=== PATIENT | male | born 2000 | race Two or more races ===

== ENCOUNTER 2023-03-28 04:31 | Emergency (ER) | payer OTHER, SELFPAY ==
--- NOTE | 2023-03-28 04:30 | DI.CT_ITS ---
Exam(s) CT HEAD WO EXAM: CT HEAD WO CLINICAL HISTORY: Head strike. TECHNIQUE: Imaging Protocol: Axial computed tomography images with coronal and sagittal reformatted images were created and reviewed COMPARISON: No exams were available for comparison FINDINGS: Ventricles and Extra axial spaces: Normal in size and morphology for the patient's age. Hemorrhage: None. Cerebral parenchyma: Normal. Midline shift: None. Brainstem/Cerebellum: Normal. Calvarium: Normal. Visualized Paranasal sinuses/Mastoids: There is a small fluid level in the right maxillary sinus. Th ere is an acute fracture of the lateral wall of the right maxillary sinus which appears comminuted. Soft Tissues: Unremarkable. IMPRESSION: 1. No acute intracranial process. 2. There is an acute fracture of the lateral wall of the right maxillary sinus which appears comminut ed. There is a fluid level in the right maxillary sinus. 3. Findings were discussed with Judy Jimenez at 5:03 p.m. on 03/28/2023. RADIATION DOSE DELIVERED: 826.29mGy.cm Total DLP DATA REPOSITORY: All CT scans at this facility are submitted to the National Radiology Data Registry (NRDR) Dose Index Registry (DIR) with the [employer] (A[employer]). RADIATION OPTIMIZATION: All CT scans at this facility use at least one of these dose optimization te chniques: automated exposure control; mA and/or kV adjustment per patient size (includes targeted exa ms where dose is matched to clinical indication); or iterative reconstruction.
--- NOTE | 2023-03-28 04:30 | RT.EKG_ITS ---
APPROVED REPORT Exam: Resting ECG Reason for Exam: fall Patient Location: E HR:53 bpm ECG Measurements Heart Rate 53 AXIS MS 137 P 78 QRSd 100 QRS 80 QT 436 T 53 QTc 410 Conclusion Sinus bradycardia...rate< 60 Left atrial enlargement...P, P'>60mS, <-0.15mV V1 ST elev, probable normal early repol pattern...ST elevation, age<55 Sinus bradycardia at a rate of 53. Normal axis. Leads V1 and V2 appear to be misplaced based on our greater than R prime and P wave inversions. No acute ST segment abnormalities. We will repeat ECG.
--- NOTE | 2023-03-28 04:30 | DI.RAD_ITS ---
Exam(s) XR CHEST 2V PA LATERAL EXAM: XR CHEST 2V PA LATERAL CLINICAL HISTORY: History of falling TECHNIQUE: 2D digital imaging was performed of the chest. Two images were obtained. PA and lateral views were obtained. COMPARISON: No exams were available for comparison FINDINGS: MEDIASTINUM: Normal. HEART: Normal. PULMONARY VASCULATURE: Normal. LUNGS: Clear. PLEURAL SPACE: No pleural effusion or pneumothorax. BONE:Within normal limits for the patient's age. OTHER FINDINGS:Normal. IMPRESSION: No acute pulmonary findings. DATA REPOSITORY: RADIATION DOSE DELIVERED:
[2023-03-28 04:32] VITALS: BP 127/82; PULSE 59; RESP 17; TEMP 37.1; O2SAT 100
--- NOTE | 2023-03-28 04:45 | DI.RAD_ITS ---
Exam(s) XR SHOULDER RT COMPLETE 2+V EXAM: XR SHOULDER RT COMPLETE 2+V CLINICAL HISTORY: Right shoulder pain status post fall. TECHNIQUE: 2D digital imaging was performed of the right shoulder. Four images were obtained. AP, Grashey, Y views were obtained. COMPARISON: No exams were available for comparison FINDINGS: BONES: No acute fracture is present. No bony destructive lesion is seen. JOINTS: No dislocation present. SOFT TISSUE: Normal. IMPRESSION: Unremarkable radiographs of the right shoulder. DATA REPOSITORY: RADIATION DOSE DELIVERED:
--- NOTE | 2023-03-28 04:45 | RT.EKG_ITS ---
APPROVED REPORT Exam: Resting ECG Reason for Exam: Syncope Patient Location: E HR:54 bpm ECG Measurements Heart Rate 54 AXIS PA 145 P 80 QRSd 95 QRS 78 QT 427 T 55 QTc 406 Conclusion Sinus bradycardia...rate< 60 ST elev, probable normal early repol pattern...ST elevation, age<[address] segment elevations V2 and V3. No ST segment depressions. No T wave inversions. I ntervals within normal limits. No acute injury pattern. No prior for comparison.
[2023-03-28] MEDS: Normal Saline 500 ML IV (04:50)
--- NOTE | 2023-03-28 04:50 | W.ED.GENAD ---
Discharge Plan Disposition Patient Disposition: Home Discharge Details Clinical Impression: Syncope and collapse, Face lacerations [facility] Provider: [facility] Provider: Bi Gonzalez Home Meds and New Rx's Prescriptions: No Action No Known Home Meds Discharge Instructions Instructions: Facial Laceration (ED) Additional Instructions: You were seen in the emergency department for your episode of passing out. Your labs show that your kidneys are working well. Your EKG showed no sign of any dangerous rhythms. Your CAT scan showed no sign of any bleeding in your head. Your shoulder x-ray showed no sign of any broken or dislocated bones. Your stitches need to come out on Thursday, 04/03. Please return to the emergency department if you develop any foul-smelling drainage and any fevers or have any other concerns. For your pain please take medications as follows: 1. Take acetaminophen (Tylenol), 1,000 mg (two 500 mg tabs) every 6 hours 2. Take ibuprofen (Advil), 400 mg every 6 hours. Discharge Data Discharge Date/Time-TO BE ENTERED AT DEPARTURE: 03/28/23 07:45 HPI General Date/Time Provider Initiated Documentation: 03/28/23 04:36. HPI Narrative: HPI This is a previously healthy 22-year-old male arrived to the emergency department via paramedics following an episode in which he fell onto the pavement outside of his car. Patient has been reportedly sleeping in his car. He smoked some marijuana yesterday evening. This occurred at 11:30 PM. At midnight he went to sleep inside of his car. He was found outside of his car by his girlfriend. He cannot recall the events that led to his fall. He sustained a laceration to the right side of his face adjacent to his right eye. He has not been having any preceding nausea vomiting chest pain or shortness of breath. He takes no medications at baseline. He did not bite his tongue. He did not lose control of his bowels or bladder. No family history of sudden cardiac . Patient plays soccer and has no history of exertional syncope. Exam General: Well-appearing in no acute distress speaking in complete sentences. Head: Normocephalic, atraumatic. Eye: [Pupils equal, round reactive to light.] Extraocular eye movements intact. No conjunctival injection. No scleral icterus. Ear, nose, mouth, throat: Grossly normal inspection. Normal voice, handling secretions normally. Just on the right lateral side of the patient's right face adjacent to his eyebrow there is a small hemostatic approximately 1.5 cm laceration. Neck: Trachea midline. Cardiovascular: Well-perfused distal extremities. Regular rhythm Respiratory: Nonlabored respiration. Clear lungs bilaterally. Gastrointestinal: Nondistended abdomen. Musculoskeletal: No edema. Moving all 4 extremities spontaneously. On the superior aspect of the patient's right shoulder there is a superficial abrasion. Patient can touch his right hand to his contralateral left shoulder. No right clavicular tenderness. Otherwise no tenderness left upper extremity and bilateral lower extremities. Pelvis stable. Bilateral hands warm and well-perfused. Skin: Normal for age and race, grossly normal temperature and turgor. No acute rash. Neurologic: Alert and appropriate, no apparent acute deficits. GCS 15 Psychiatric: Mood and manner are appropriate. Grooming and personal hygiene are appropriate. MDM This is an overall very well-appearing normothermic and not tachycardic 22-year-old with syncope versus intoxication secondary to marijuana for which patient will undergo evaluation. Will obtain ECG. No black nor bloody stools without GI bleed. Patient received primary immunizations during childhood so no indication for tetanus immunization. No shortness of breath and PERC negative so no indication for D-dimer. Given head strike will obtain CT head given loss of consciousness. No tonic-clonic activity nor loss of bowel or bladder control to suggest benefit for EEG. Anticipate the patient's right facial laceration will require primary closure. Given right shoulder abrasion and tenderness will obtain shoulder x-ray. Low suspicion for dislocation. We will also obtain chest x-ray. No apparent pupillary defect and no proptosis so no indication for lateral canthotomy. [facility] Head CT Criteria Major Criteria GCS < 15 : [No] Open or depressed skull Fx: [No] Sign of Basilar Skull Fx: [No] > 2 Episodes Vomiting: [No] Anticoagulation: [No] Age > 65: [No] Minor Criteria Retrograde Amnesia >30min: Yes Dangerous Mechanism: [No] Per Nexus criteria, cervical CT not obtained. The patient had no c-spine midline tenderness, no evidence of intoxication, was AAOx3, had no focal neurological deficits, and no painful distracting injuries. In the setting of syncope I considered: High risk features: 1. Age of the patient (elderly a greatest risk) 2. Syncope during exertion 3. Family history of sudden [place] syncope rule: 1. History of CHF 2. Hematocrit < 30 3. EKG abnormalities 4. Present shortness of breath 5. Systolic blood pressure less than 90 Cardiac arrhythmia/EKG or abnormalities considered: 1. ACS: No ST changes 2. Tachy-jeff: No blocks 3. WPW: No delta wave 4. Brugada: No RSR'; R-bundle appearance 5. HCM: No LVH; needle Qs/ T-wave inversions 6. Short/ Long QT: 300 < QTc < 500; no family hx 7. Arrhythmogenic Right Ventricular Dysplasia: No epsilon wave, no inverted Ts in anterior precordium 6 AM Basic metabolic panel with mild hyperglycemia but no anion gap and normal bicarbonate??not consistent with DKA. CBC with leukocytosis but no anemia. No thrombocytopenia. No prior for comparison. 7:36 AM Patient was able to tolerate p.o. in the emergency department. He was able to ambulate. His CT scan was read as showing no acute intracranial process. His chest x-ray was also unremarkable. His right shoulder films are also negative for any dislocations and fractures. Patient was able to tolerate p.o. in the ED. He was ambulatory in the ED. He was discharged with empiric trial of expectant outpatient management. Chronic conditions affecting the care of the patient: N/A History obtained from an outside historian: Paramedics and girlfriend External record review: No [facility] [place] [Diagnostic interpretations performed by me:] [Per my independent interpretation chest x-ray shows:]No acute cardiopulmonary process my preliminary interpretation [Per my independent interpretation EKG shows:] Initial ECG showing sinus bradycardia at a rate of 53. ECG had P wave inversions in V1 and V2 consistent with lead misplacement. P wave inversions improved in V1 and V2. Mild upsloping ST segment elevations V2 and V3. No ST segment depressions. No T wave inversions. Intervals within normal limits. No acute injury pattern. No prior for comparison. Medications: Acetaminophen ibuprofen Social determinants of health affecting disposition: Undomiciled Management discussed with: N/A Treatment/interventions considered: N/A Response to therapies provided: No recurrent syncope in the ED Related Data Home Medications Medication Instructions Recorded Confirmed Unknown [No Known Home Meds] 03/28/23 03/28/23 Allergies Allergy/AdvReac Type Severity Reaction Status Date / Time No Known Allergies Allergy Unverified 03/28/23 04:38 General Stated Complaint: [facility] DINORA: 3 PFSH All Active Problems (Updated 03/28/23 @ 07:39 by Bi Gonzalez MD) Syncope and collapse (Acute) Face lacerations (Acute) Social History Smoking/Tobacco Use Status: Never Smoking risk assessment performed?: Yes Drug use: Daily Substance use type: marijuana Course Vital Signs Vital signs: Vital Signs Temperature 37.1 C 03/28/23 04:32 Pulse 59 03/28/23 04:32 Respiratory Rate 17 03/28/23 04:32 Blood Pressure 127/82 03/28/23 04:32 Pulse Oximetry 100 03/28/23 04:32 Temperature 37.1 C 03/28/23 04:32 Temperature Source Oral 03/28/23 04:32 Pulse 59 03/28/23 04:32 Respiratory Rate 17 03/28/23 04:32 Respiratory Effort Normal 03/28/23 04:32 Blood Pressure 127/82 03/28/23 04:32 Blood Pressure Position Sitting 03/28/23 04:32 Pulse Oximetry 100 03/28/23 04:32 Pain Level 7 03/28/23 04:32 Procedures Laceration Laceration 1: Site: face Side (If applicable): right Size (cm): 1.5 Description: linear Depth: simple, single layer Local Anesthetic: other anesthetic (L ET) Pre-repair: irrigated extensively Skin layer closed with: nylon Size (cm): 6-0 (Prolene) Number of sutures: 2 Technique: simple, interrupted
[2023-03-28] MEDS: Lidocaine/Epinephri/Tetracaine Topical Gel 3 ML TP (04:55)
[2023-03-28] MEDS: Acetaminophen 500 MG TAB 1000 MG PO ×2 (04:55→07:39)
[2023-03-28 04:56] LABS: Abs Immature Grans 0.02 10^3/uL (0.0-0.06); Absolute Basophil Count 0.02 10^3/uL (0.0-0.2); Absolute Lymphocyte Count 3.17 10^3/uL (1.2-3.4); Absolute Monocyte Count 0.71 10^3/uL (0.1-0.8); Basophils % 0.2; Eosinophils % 0.4; HCT 41.1 % (40.0-50.0); HGB 13.6 g/dL (13.5-17.5); Immature Grans % 0.2; Lymphocytes % 28.4; MCH 30.6 pg (27.0-33.0); MCHC 33.1 % (32.0-36.0); MCV 92 fL (80-95); MPV 9.6 fL (8.0-11.0); Monocytes % 6.4; Neutrophils % 64.4; Platelet Count 228 10^3/uL (130-400); RBC 4.45 10^6/uL (4.36-5.78); RDW 13.3 % (11.8-14.1); RDW-SD 45.7 fL; WBC 11.17 10^3/uL (4.4-10.8)
[2023-03-28 05:00] LABS: Absolute Eosinophil Count 0.04 10^3/uL (0.0-0.7); Absolute Neutrophil Count 7.19 10^3/uL (1.2-6.7)
[2023-03-28 05:06] LABS: Anion Gap 6.7 mmol/L (3-11); BUN 13 mg/dL (7-18); CO2 28.3 mmol/L (21.0-32.0); CREATININE 0.9 mg/dL (0.70-1.30); Calcium 9.3 mg/dL (8.5-10.1); Chloride 103 mmol/L (98-107); Estimated GFR 124.61 (mL/min/1.73m2); Glucose 130 mg/dL (74-106); Potassium 3.7 mmol/L (3.5-5.1); Sodium 138 mmol/L (136-145)
--- NOTE | 2023-03-28 06:38 | NUR.NOTE ---
lac near R eye-irrigated with saline.Nursing Note:
[2023-03-28 06:39] VITALS: RESP 16
--- NOTE | 2023-03-28 07:14 | DI.VRAD_ITS ---
PROCEDURE INFORMATION: Exam: CT Head Without Contrast Exam date and time: 03/28/2023 6:10 AM Age: 22 years old Clinical indication: Injury or trauma; Fall; Blunt trauma (contusions or hematomas); Consciousness not specified; Injury date: Today TECHNIQUE: Imaging protocol: Computed tomography of the head without contrast. Radiation optimization: All CT scans at this facility use at least one of these dose optimization techniques: automated exposure control; mA and/or kV adjustment per patient size (includes targeted exams where dose is matched to clinical indication); or iterative reconstruction. COMPARISON: No relevant prior studies available. FINDINGS: There is no evidence of intraparenchymal hemorrhage, mass effect or extra-axial collection. Ventricular size is normal. Visualized intraorbital soft tissues are normal. Mucosal thickening in the inferior right maxillary sinus. No air-fluid levels. IMPRESSION: No acute intracranial process. Dictated and Authenticated by: Flower Howard MD. Ordering:ROSHNI Pat MD
--- NOTE | 2023-03-28 07:20 | DI.VRAD_ITS ---
PROCEDURE INFORMATION: Exam: XR Chest Exam date and time: 03/28/2023 6:16 AM Age: 22 years old Clinical indication: Other: Fall; HX of falls TECHNIQUE: Imaging protocol: Radiologic exam of the chest. Views: 2 views. COMPARISON: No relevant prior studies available. FINDINGS: Lungs: Unremarkable. No consolidation. Pleural spaces: Unremarkable. No pleural effusion. No pneumothorax. Heart/Mediastinum: Unremarkable. No cardiomegaly. Bones/joints: Unremarkable. IMPRESSION: No acute findings. Dictated and Authenticated by: Flower Howard MD. Ordering:ROSHNI Pat MD
--- NOTE | 2023-03-28 07:21 | DI.VRAD_ITS ---
PROCEDURE INFORMATION: Exam: XR Right Shoulder Exam date and time: 03/28/2023 6:21 AM Age: 22 years old Clinical indication: Pain; Shoulder; Right TECHNIQUE: Imaging protocol: Radiologic exam of the right shoulder. Views: 2 or more views. COMPARISON: CR XR CHEST 2V PA LATERAL 03/28/2023 6:16 AM FINDINGS: Bones/joints: Normal. No fracture or dislocation. Soft tissues: Normal. IMPRESSION: No acute findings. Dictated and Authenticated by: Flower Howard MD. Ordering:ROSHNI Pat MD
[2023-03-28] MEDS: Ibuprofen 600 MG TAB PO (07:39)
--- NOTE | 2023-03-28 17:21 | W.ED.FU ---
Date of service: 03/28/23 Time of Service: 17:21 Follow Up Plan: Received call from radiology regarding CT results which show a right fracture of the lateral wall of the maxillary sinus with fluid levels. Call made to patient at [phone] no answer voicemail left.
--- NOTE | 2023-03-29 10:40 | W.ED.FU ---
Date of service: 03/29/23 Time of Service: 10:41 Follow Up Plan: pt called back after having message left, discussed radiology read of sinus fracture, pt is feeling well, no severe pain, no vision changes. Advised will place on follow up list to follow up with ENT in 1-2 weeks, return precautions given as well
--- NOTE | 2023-03-29 10:42 | NUR.NOTE ---
Accessed chart to find demographics for an ENT referral. The referral is needed due to a fractured sinus, within 1 week. Request was faxed.Nursing Note:
== END 2023-03-28 07:45 | disposition home or self-care (01) ==
PROVIDERS: Emergency Provider Emergency Medicine
DX: R55 Syncope and collapse (principal); S01.411A Laceration without foreign body of right cheek and temporomandibular area, initial encounter; R00.1 Bradycardia, unspecified; R73.9 Hyperglycemia, unspecified; D72.829 Elevated white blood cell count, unspecified; W17.89XA Other fall from one level to another, initial encounter; Z59.02 Unsheltered homelessness
CPT/HCPCS: 12011; 36415; 80048; 93005; 96360; 96361; 99284; 70450; 71046; 73030; 85025; 93010